=== PATIENT | female | born 1995 | race Caucasian/White ===

== ENCOUNTER → 2023-07-17 | Outpatient (CLI) | payer OTHER ==
[2023-07-17 10:12] VITALS: BP 150/92; PULSE 72; RESP 18; TEMP 97.9
--- NOTE | 2023-07-17 11:14 | P.HPOB ---
History of Present Illness H&P Date: 07/17/23 Chief Complaint: The patient is here for her routine gynecologic exam. This is a 28-year-old with an LMP of 07/05/2023. The patient is here to establish with this office. It has been about 6 years since her last pelvic exam. She previously had an IUD in place, but states it was embedded in to her cervix and had to be surgically removed in 2017. Since then the patient states she has had pains in the areas of her ovaries and it feels like she has sharp pains in her ovaries. She denies taking any pain medications for this. She states she notices the pains when she is doing heavy moving or with deep cough. She does have a history of pain pill addiction and is on Suboxone for this. She can notice this any time during the month. Her menstrual periods are regular every month. She states she has not used anything for control since the IUD was removed. She states that if she became and it would be "cool", and "if it happens it happens". She states she may consider getting her tubes tied. She also has noticed a lump in the left breast and states it is the size of the top of a golf ball. She has noticed this for about 1 month. She denies any nipple discharge. She denies breast pain. Review of Systems She states her weight can fluctuate by plus or minus 10 pounds. She denies respiratory or cardiac problems. GI: Occasional vomiting at night especially if she eats too late. 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 History of Any Multi-Drug Resistant Organisms: None Reported Additional Past Surgical History / Comment(s): IUD SURGICALLY REMOVED 2016 Past Anesthesia/Blood Transfusion Reactions: No Reported Reaction Past Psychological History: ADD/ADHD, Anxiety, Depression Additional Psychological History / Comment(s): History of pain pill addiction and is currently on Suboxone for this. Smoking Status: Current every day smoker (Half to 1 pack of cigarettes per day.) Past Alcohol Use History: None Reported Past Drug Use History: Cocaine (Infrequent use.), Marijuana (Daily use.) Additional Drug Use History / Comment(s): She has a history of pain pill addiction and is on Suboxone. Additional History: She is single and has been with her boyfriend since 2017. They live together. 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 - Past Family History Father Family Medical History: Hyperlipidemia, Hypertension Additional Family Medical History / Comment(s): . Father was overweight and had a history of depression. Mother Additional Family Medical History / Comment(s): Depression and ADHD. Maternal grandmother had breast cancer and diabetes. Medications and Allergies Home Medications Medication Instructions Recorded Confirmed Type Buprenorphine HCl/Naloxone HCl 8 mg PO DAILY 07/17/23 07/17/23 History [Suboxone 8 mg-2 mg Sl Film] Allergies Allergy/AdvReac Type Severity Reaction Status Date / Time No Known Allergies Allergy Unverified 07/17/23 10:06 Exam Vital Signs Temp Pulse Resp BP Pulse Ox 07/17/23 10:07 97.9 F 72 18 150/92 96 Intake and Output 07/16/23 07/17/23 07/17/23 22:59 06:59 14:59 Other: Weight 93.894 kg Height 5 feet 3 inches, weight 207 pounds, BMI 36.7. This is a well-developed well-nourished white female who is alert and oriented times 3 in no acute distress. HEENT: Poor Dentition is noted. HEENT is otherwise within normal limits. NECK: Supple without mass or thyromegaly. CHEST AND LUNGS: Clear to auscultation. HEART: Regular rate and rhythm. BREASTS: There is a slightly thickened area at the 11 to 12 o'clock position of the left breast. This area feels like slightly thickened tissue approximately a nickel size and is flat. This area is nontender. There is no dimpling or eryth kya in this area. There are no other palpable masses. Nipples appear normal without discharge. AXILLARY EXAM: Negative for adenopathy. BACK: Negative for CVA tenderness. ABDOMEN: Soft, nontender, without palpable masses. PELVIC EXAM: Normal external genitalia. Cervix and vagina appear normal. There is no unusual discharge. There is no cervical motion tenderness. There is no evidence of prolapse. The uterus is midposition, nongravid size and nontender. There are no palpable adnexal masses or tenderness. RECTAL EXAM: Rectovaginal exam is negative for mass or tenderness and is negative for occult blood. EXTREMITIES: Nontender. IMPRESSION: 1. 28-year-old female who has not used anything for contraception for several years with normal gynecologic exam. 2. Several year history of right pelvic pains with no significant physical findings on exam today. 3. The patient has felt a left breast lump for the past month. This is not very suspicious on exam, but feels like a thickened area at the 11:00 to 12 o'clock position of the left breast. 4. History of pain medication/opioid addiction and is on Suboxone for this. PLAN: 1. Pap smear cotest was performed. 2. Self breast awareness was discussed with the patient. We have also discussed symptoms associated with inflammatory breast cancer. 3. Diagnostic mammogram will be done today because of the breast lump felt by the patient. The area of concern was marked. 4. Pelvic ultrasound was recommended. The order slip was given to the patient for this. 5. She is considering tubal sterilization. If she decides to proceed with this, laparoscopic examination could be done to further evaluate the right-sided pain. This could also be done without tubal sterilization if her pain is persistent. 6. I recommended that she use condoms if she does not want to get in the immediate future. She will let me know if she wants to proceed with tubal sterilization and she can be referred for this. 7. I have recommended that she take a daily multivitamin which may help to decrease the risk for defects if she did get . 8. She was advised to return in one year for her annual well woman exam and as needed.
--- NOTE | 2023-07-17 11:58 | MM ---
Reason for Exam: Clinical finding. Baseline mammogram. Indicated Problems: Lump or thickening of the left side for 1 Month(s). Patient History: Menarche at age 11. First Full-Term at age 20. Maternal grandmother had breast cancer. Last menstrual period: 07/05/2023 Prior Study Comparison: Patient's first Mammogram. No prior studies available for comparison. Tissue Density: There are scattered fibroglandular densities. Findings: Analyzed By CAD. No distinct mass at the site of clinical concern upper outer left breast. Ultrasound is recommended. 2 nodular densities are seen upper outer right breast approximately 10 cm from the nipple and likely reflect intramammary lymph nodes. Ultrasound confirmation recommended. No suspicious calcific patient present. Overall Assessment: Incomplete: need additional imaging evaluation, BI-RAD 0 Management: Diagnostic Breast Ultrasound of both breasts. . Results were given to the patient verbally at the time of exam. Patient should continue monthly self-breast exams. A clinical breast exam by your physician is recommended on an annual basis. This exam should not preclude additional follow-up of suspicious palpable abnormalities. Note on Lucrecia scores and lifetime risk: 1. A Lucrecia score greater than 3% is considered moderate risk. If this is the case, consider specialist referral to assess eligibility for a risk reducing agent. 2. If overall lifetime risk for the development of breast cancer is 20% or higher, the patient may qualify for future screening with alternating mammogram and breast MRI. Electronically signed and approved by: Jeremias Dukes M.D. Radiologis
--- NOTE | 2023-07-17 12:26 | USB ---
Reason for Exam: Clinical finding. Patient History: Menarche at age 11. First Full-Term at age 20. Maternal grandmother had breast cancer. Technique: Method: Targeted. Findings: The upper outer quadrant of the right breast, the area of palpable concern of the left breast, the axilla of both breasts and the retroareolar of both breasts were scanned. At the site of clinical concern left breast 11:00 position 9 cm from the nipple there is no evidence for solid or cystic mass. Clinical correlation advised. Evaluation of the right breast upper-outer quadrant demonstrates a 5 mm lymph node at the 9:00 position 10 cm from the nipple. Overall Assessment: Benign, BI-RAD 2 Management: Screening Mammogram of both breasts at age 38. A clinical breast exam by your physician is recommended on an annual basis and results should be correlated with mammographic findings. This exam should not preclude additional follow-up of suspicious palpable abnormalities. Results were given to the patient verbally at the time of exam. Electronically signed and approved by: Jeremias Dukes M.D. Radiologis
== END ==
LOC: WWCWWP 10:00
PROVIDERS: ATTEND Obstetrics & Gynecology
DX: Z01.419 Encounter for gynecological examination (general) (routine) without abnormal findings (principal); N63.20 Unspecified lump in the left breast, unspecified quadrant; F17.210 Nicotine dependence, cigarettes, uncomplicated; F11.20 Opioid dependence, uncomplicated; Z80.3 Family history of malignant neoplasm of breast
CPT/HCPCS: 77066; 76642; G0279; 77062